=== PATIENT | male | born 1945 | race Caucasian/White ===

== ENCOUNTER 2018-08-03 12:52 | Outpatient (CLI) | payer MEDICARE ==
--- NOTE | 2018-08-03 15:06 | ULT ---
RIGHT LOWER EXTREMITY VENOUS DUPLEX ULTRASOUND INCLUDING COLOR AND SPECTRAL DOPPLER IMAGING: History: 72-year-old male with history of right leg swelling and edema. FINDINGS: Exam performed from groin to ankle including visualized greater saphenous, common femoral, superficia l femoral, profunda femoral, popliteal, trifurcation and posterior tibial vein regions. There is phas ic flow at all levels with normal compressibility and normal augmentation. Somewhat complicated appea ring large popliteal fossa cyst measuring approximately 2.5 x 5.5 cm in size. IMPRESSION: Large complicated popliteal fossa cyst. No evidence for deep venous thrombosis. POS: RICKEY
== END 2018-08-03 12:53 | disposition home or self-care (01) ==
LOC: ULT 12:52
PROVIDERS: ATTEND Surgery
DX: M79.89 Other specified soft tissue disorders (principal); R60.9 Edema, unspecified; M71.21 Synovial cyst of popliteal space [Baker], right knee

== ENCOUNTER 2018-11-30 08:08 | Outpatient (CLI) | payer MEDICARE ==
[2018-11-30] MEDS ORDERED: Gadobenate Dimeglumine 529 MG/1 ML (20ML VIAL) ONE (10:10)
--- NOTE | 2018-11-30 12:33 | MRI ---
MRI PELVIS WITH AND WITHOUT CONTRAST: HISTORY: R97.2, elevated PSA. COMPARISON: None. TECHNIQUE: Multiplanar, multisequence MRI of the pelvis is performed prior to and after the intravenous administ ration of contrast. The exam was reviewed on an independent 3D work station. FINDINGS: The prostate measures 5.5 x 5.1 x 4.9 cm, for a volume of 60.85. In the peripheral zone, from the base to the apex, from 5 o'clock to 6 o'clock, there is mildly T2 hy pointense foci, which is relatively ovoid and symmetric bilaterally. This does have type 3 kinetics without any increased signal on the DWI high b-value sequence. In the transitional zone, multiple stromal and glandular BPH nodules. The capsule is intact. The neurovascular bundles are intact. There are small bilateral external iliac lymph nodes and obturator lymph nodes. No adenopathy. Bones: On the T1 weighted imaging sequence, there are no foci of T1 signal loss to suggest osseous m etastatic disease. IMPRESSION: 1. Prostatic volume of 60.85 mL. 2. PI-RADS 2: Low (clinically significant prostate cancer is unlikely to be present). There are bi lateral symmetric foci of T2 signal hypointensity within the transitional zone bilaterally, which hightower s have type 3 rapid wash-in and wash-out kinetics, suggesting bilateral prostatitis. 3. Intact neurovascular bundles and prostate capsule. 4. No evidence of osseous or lymphovascular metastatic disease. POS: SOURAV
== END 2018-11-30 08:09 | disposition home or self-care (01) ==
LOC: TBSIIMAG 08:08
PROVIDERS: ATTEND Urology
DX: R97.20 Elevated prostate specific antigen [PSA] (principal)
CPT/HCPCS: 72197; 82565; A9577

== ENCOUNTER 2019-11-14 09:11 | Outpatient (CLI) | payer MEDICARE ==
--- NOTE | 2019-11-14 13:47 | NM ---
Radionucleotide bone scan HISTORY: Prostate cancer. Initial staging. FINDINGS: Heterogeneous uptake at the shoulders, feet, and right knee. More prominent uptake about th e left knee, most pronounced on each side of the medial compartment. Very mild degenerative type uptake of the spine. There is asymmetric uptake of the kidneys, with a lobular area of significantly increased uptake proj ecting over the inferior half of the left kidney. IMPRESSION: No scintigraphic evidence of osseous metastases. 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 Increased uptake at the inferior pole of the left kidney compared to the right. Possible hydronephros is.
== END 2019-11-14 09:12 | disposition home or self-care (01) ==
LOC: NM 09:11
PROVIDERS: ATTEND Urology
DX: C61 Malignant neoplasm of prostate (principal); M17.12 Unilateral primary osteoarthritis, left knee
CPT/HCPCS: 78306; A9503

== ENCOUNTER 2021-03-12 07:13 | Emergency (ER) | payer OTHER, MEDICARE ==
[2021-03-12] MEDS ORDERED: Lidocaine 1% w/Epinephrine 1:100K 20 ML VIAL ONE ×2 (09:19→09:20)
== END 2021-03-12 09:58 | disposition home or self-care (01) ==
LOC: ERS 07:13
DX: S61.451A Open bite of right hand, initial encounter (principal); I10 Essential (primary) hypertension; W54.0XXA Bitten by dog, initial encounter
CPT/HCPCS: 12001